=== PATIENT | female | born 1960 | race Caucasian/White ===

== ENCOUNTER 2024-01-27 10:47 | Emergency (ER) | payer OTHER ==
[2024-01-27 10:56] VITALS: BP 173/84; PULSE 75; RESP 16; TEMP 97.1; BMI 30.9
[2024-01-27] MEDS ORDERED: LIDOCAINE 5% TOPICAL PATCH ONE (12:06)
[2024-01-27] MEDS ORDERED: ACETAMINOPHEN 500 MG TABLET (FP) ONE (12:07)
[2024-01-27] MEDS: LIDOCAINE 5% TOPICAL PATCH TP ONE (12:16)
[2024-01-27] MEDS: ACETAMINOPHEN 500 MG TABLET (FP) PO ONE (12:17)
[2024-01-27] MEDS ORDERED: LIDOCAINE PATCH REMOVAL MC ONE (22:00)
== END 2024-01-27 13:58 | disposition home or self-care (01) ==
LOC: JER 10:47
DX: M54.2 Cervicalgia (principal); M25.511 Pain in right shoulder; G89.29 Other chronic pain
CPT/HCPCS: 99283-25